=== PATIENT | male | born 2000 | race Caucasian/White ===

== ENCOUNTER 2023-11-09 08:11 | Outpatient (CLI) | payer OTHER, MEDICAID, SELFPAY | END 2023-11-09 08:12 | disposition home or self-care (01) | LOC: ANHAUDASC 08:13 | PROVIDERS: PCP Family Medicine; Visit Provider Otolaryngology | DX: H69.90 Unspecified Eustachian tube disorder, unspecified ear (principal); J30.2 Other seasonal allergic rhinitis; J01.20 Acute ethmoidal sinusitis, unspecified | CPT/HCPCS: 92557; 92567 ==